=== PATIENT | female | born 1985 | race Caucasian/White ===

== ENCOUNTER → 2019-10-21 16:35 | Outpatient (CLI) | payer OTHER, SELFPAY ==
[2019-10-21 14:12] VITALS: BMI 23.6
[2019-10-29 04:19] LABS: HPV APTIMA, High Risk Negative (Negative)
== END ==
PROVIDERS: PCP Family Medicine; Referring Provider Obstetrics & Gynecology; Visit Provider Obstetrics & Gynecology
DX: R87.610 Atypical squamous cells of undetermined significance on cytologic smear of cervix (ASC-US) (principal)
CPT/HCPCS: 87624; 88175; G0145